=== PATIENT | female | born 1980 | race Caucasian/White ===

== ENCOUNTER → 2018-01-27 | Outpatient (CLI) | payer BC ==
--- NOTE | 2018-01-27 17:51 | KCIC ---
PREG MORE THAN OR EQ TO 14 WKS History: Supervision of , diagnostic OB sonogram Comparison: None. Findings: Multiple transabdominal sonographic images of the uterus are submitted. There is a single intrauterine fetus in breech presentation. There is demonstrable cardiac activity, 133 bpm. There is midline cord insertion. There is a four-chamber view of the heart. bladder, stomach, 2 kidneys were visualized. No obvious abnormality is demonstrated of the visualized spine or intracranial structures. Cervix measured 4.1 cm in length. Amniotic fluid volume is within normal limits, estimated JONI 14 cm. There is posterior and fundal placenta. Lateral ventricle measured 5 mm. There is three-vessel cord. 2 upper and lower extremities were demonstrated. Maternal adnexal regions are not demonstrated. Biometry data are as follows: Biparietal diameter 5.02 cm corresponds with 21 weeks 1 day Head circumference 18.57 cm corresponds with 20 weeks 6 days Abdominal circumference 15.8 cm corresponds with 21 weeks 0 days Femur length 3.4 cm corresponds with 20 weeks 5 days HC/AC ratio within normal limits 1.18. Estimated weight 391 g +/- 56 g. Adjusted ultrasound age 21 weeks 0 days with estimated delivery date of 06/09/2018. LMP age 20 weeks 6 days with estimated delivery date of 06/10/2018. Impression: 1. There is single intrauterine fetus in breech presentation, no demonstrable anatomic abnormality. Electronically signed by: Joesph Lentz MD (01/27/2018 5:49 PM) [id number]
== END | disposition home or self-care (01) ==
LOC: KCIC US 08:37
PROVIDERS: ATTEND Midwife, Lay
DX: O09.512 Supervision of elderly primigravida, second trimester (principal); O32.1XX0 Maternal care for breech presentation, not applicable or unspecified; Z3A.21 21 weeks gestation of pregnancy
CPT/HCPCS: 76805